=== PATIENT | female | born 1975 | race Two or more races ===

== ENCOUNTER → 2017-01-05 | Outpatient (CLI) | payer BC ==
--- NOTE | 2017-01-05 14:45 | HKNOTE ---
DATE OF SERVICE: 01/05/2017 CHIEF COMPLAINT: Left hip pain. HISTORY OF PRESENT ILLNESS: This is a 41-year-old female who is complaining of pain on the side of her hip. She denies any groin pain. There is no radiation of the pain. She denies any back pain. She states that the pain is worse with squatting. She does not take any pain medications. She has not had any previous treatment. GAIT: Nonantalgic gait, no use of assistive device. LEFT HIP EXAM: Tender over the greater trochanter, 0 to 100 degrees of flexion, 50 degrees of exter nal rotation, 20 degrees of internal rotation. Negative GARLAND's. Negative straight leg raise. No obligate external rotation. Negative Stinchfield test. RIGHT HIP EXAM: 0 to 100 degrees of flexion, 50 degrees of external rotation, 20 degrees of interna l rotation. Negative GARLAND's. Negative straight leg raise. No obligate external rotation. Negati ve Stinchfield test. IMAGING: AP pelvis x-ray: No abnormality seen. X-rays of left hip 2 views. No abnormalities are seen. IMPRESSION: This is a 41-year-old female with left trochanteric bursitis. PLAN: She will be referred for physical therapy. She can take ibuprofen as needed. I also discuss ed injection options with the patient. She is not interested in injection at this time. She will f ollow up as needed in the future. Dictated By: DEMIAN SUAREZ/LILLIAN Conf#: [id number] DID#: [id number]
--- NOTE | 2017-01-05 23:21 | RADRPT ---
PROCEDURE: XR Left hip and pelvis. CLINICAL INDICATION: Left hip pain and pelvic pain. TECHNIQUE: 3 views. Frontal pelvis. Frontal and lateral left hip. COMPARISON: None. FINDINGS: There is no fracture or dislocation. The soft tissues are normal. There are degenerative changes of the hips with osteophytes noted. There is no joint space narrowing or deformity. There is no lytic or blastic lesion. There is a linear metal foreign body overlying the left side of the pelvis measuring approximately 2 cm in length. IMPRESSION: 1. Mild degenerative changes of both hips. 2. Linear metal foreign body overlying the left side of the pelvis measuring approximately 2 cm in length. This may be inside the patient or outside the patient. Clinical correlation is advised. 3. Otherwise unremarkable study. RPTAT: QQ .Saturnino Anderson MD, Date Time Electronically viewed and signed by .Saturnino Anderson MD, on 01/05/2017 23:21 .R/
== END | disposition home or self-care (01) ==
LOC: HKI 13:41
PROVIDERS: ATTEND Orthopaedic Surgery Adult Reconstructive Orthopaedic Surgery
DX: M70.62 Trochanteric bursitis, left hip (principal)
CPT/HCPCS: 73502; G0463